=== PATIENT | male | born 1950 | race African-American/Black ===

== ENCOUNTER 2019-03-05 09:27 | Emergency (ER) | payer MEDICARE, OTHER ==
[~2019-03-05] VITALS: Ht 170.2 cm; Wt 90.7 kg
[~2019-03-05 09:27] MED LIST: ATEN100T PO; ATOR20TA PO; BECL8.7A6 IH; CETI10TA16 PO; CLON0.2T PO; CYCL10TA2 PO; FLUT9.9S NS; LEVO500T59 PO; METF10007 PO; NAPR-514 PO; OLME1TAB35 PO; OMEP20CA10 PO; PROAIR RESPICL90 MCG IH
[2019-03-05 09:34] VITALS: BP 160/87
[2019-03-05] MEDS ORDERED: KETOROLAC 60 MG/2 ML VIAL. IM ONE (09:45)
[2019-03-05] MEDS ORDERED: ORPHENADRINE CITRATE 60 MG/2 ML VIAL. IM ONE (09:45)
--- NOTE | 2019-03-05 10:37 | PHYS DOC ---
Past Medical History Past Medical History: Asthma, Diabetes-Type II, Hypertension Past Surgical History: Other Additional Past Surgical Histo: R eye surgery and hernia repair Alcohol Use: None Drug Use: None Adult General Chief Complaint Chief Complaint: SHOULDER INJURY HPI HPI Patient is a 69 year old male who presents with significant that last night in the grass and landed on the left shoulder. Patient states that he woke up this morning with pain. Rates his pain a 10 out of 10 and states it's throbbing pain cramping. Review of Systems Review of Systems Constitutional: Denies fever or chills [] Eyes: Denies change in visual acuity, redness, or eye pain [] HENT: Denies nasal congestion or sore throat [] Respiratory: Denies cough or shortness of breath [] Cardiovascular: No additional information not addressed in HPI [] GI: Denies abdominal pain, nausea, vomiting, bloody stools or diarrhea [] : Denies dysuria or hematuria [] Musculoskeletal: Denies back pain. Left shoulder joint pain [] Integument: Denies rash or skin lesions [] Neurologic: Denies headache, focal weakness or sensory changes [] Endocrine: Denies polyuria or polydipsia [] All other systems were reviewed and found to be within normal limits, except as documented in this note. Current Medications Current Medications Current Medications Medications (Trade) Dose Ordered Sig/Cinthia Start Time Stop Time Status Last Admin Dose Admin Ketorolac Tromethamine (Toradol Im) 60 mg 1X ONCE 03/05/19 09:45 03/05/19 09:46 DC 03/05/19 09:46 60 MG Orphenadrine Citrate (Norflex) 60 mg 1X ONCE 03/05/19 09:45 03/05/19 09:46 DC 03/05/19 09:46 60 MG Allergies Allergies Allergies Coded Allergies Type Severity Reaction Last Updated Verified lisinopril Allergy Intermediate COUGH 10/18/15 Yes Physical Exam Physical Exam Constitutional: Well developed, well nourished, no acute distress, non-toxic appearance. [] HENT: Normocephalic, atraumatic, bilateral external ears normal, oropharynx moist, no oral exudates, nose normal. [] Eyes: PERRLA, EOMI, conjunctiva normal, no discharge. [] Neck: Normal range of motion, no tenderness, supple, no stridor. [] Cardiovascular:Heart rate regular rhythm, no murmur [] Lungs & Thorax: Bilateral breath sounds clear to auscultation [] Abdomen: Bowel sounds normal, soft, no tenderness, no masses, no pulsatile masses. [] Skin: Warm, dry, no erythema, no rash. [] Back: No tenderness, no CVA tenderness. [] Extremities: No tenderness, no cyanosis, no clubbing, left shoulder ROM not intact, no edema. [] Neurologic: Alert and oriented X 3, normal motor function, normal sensory function, no focal deficits noted. [] Psychologic: Affect normal, judgement normal, mood normal. [] Current Patient Data Vital Signs Vital Signs Date Time Temp Pulse Resp B/P (MAP) Pulse Ox O2 Delivery O2 Flow Rate FiO2 03/05/19 09:34 98.5 107 20 160/87 (111 95 Room Air 98.5 EKG EKG [] Radiology/Procedures Radiology/Procedures [] Impressions: [facility] [address] [place], [place] [id number] IMAGING REPORT Signed PATIENT: KYLEIGH LUIS ACCOUNT: [id number] : 1950 LOCATION: ER AGE: 69 SEX: M EXAM STATUS: REG ER ORD. PHYSICIAN: THEA MEDEIROS APRN REASON: injury pain, pt fell last quiana, left shoulder pain and limited movement PROCEDURE: SHOULDER 2+V LEFT Three-view left shoulder study Clinical indications: Patient fell last evening. Left shoulder pain and limited range of motion. FINDINGS: No acute fracture or dislocation or lytic process is evident. No AC joint separation is seen. 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 IMPRESSION: No acute fracture. Electronically signed by: Cristiano Dover MD (03/05/2019 10:51 AM) [facility] DICTATED and SIGNED BY: CRISTIANO DOVER MD DATE: 03/05/19 1051 Course & Med Decision Making Course & Med Decision Making Patient is a 69 year old male who presents with significant that last night in the grass and landed on the left shoulder. Patient states that he woke up this morning with pain. Rates his pain a 10 out of 10 and states it's throbbing pain cramping. Alert and oriented. Ambulatory with steady gait. Examining the left shoulder there is no deformity, bruising or abrasion or tenderness with p alpation or seen. Patient has limited range of motion in the joint due to pain. He can raise the joint about half way to shoulder height in all direction. No laxity in the joint. Cap refill less than 3 seconds. Skin pink warm and dry. Radial pulses strong and intact. No swelling in the extremity. Patient states he is not taken any pain medication. Patient is given a shot of orphenadrine and Toradol in the ED. Xray findings show No acute fracture or dislocation or lytic process is evident. No AC joint separation is seen. 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 Patient is to follow up with primary care if not getting better. Patient to take medications as ordered. Dragon Disclaimer Dragon Disclaimer This electronic medical record was generated, in whole or in part, using a voice recognition dictation system. Departure Departure Impression: Primary Impression: Shoulder pain Disposition: 01 HOME, SELF-CARE Condition: STABLE Referrals: UNKNOWN PCP NAME (PCP) ABIOLA SHOEMAKER MD Patient Instructions: Shoulder Pain Additional Instructions: Follow up with primary care provider or Dr Shoemaker if not getting better. Try using ice or heat. Scripts Ibuprofen (IBUPROFEN) 600 Mg Tablet 600 MG PO PRN Q6HRS PRN for INFLAMMATION, #20 TAB Prov: THEA MEDEIROS APRN 03/05/19 Orphenadrine Citrate (ORPHENADRINE CITRATE) 100 Mg Tablet.er 1 TAB PO BID, #20 TAB Prov: THEA MEDEIROS APRN 03/05/19 Problem Qualifiers Primary Impression: Shoulder pain Chronicity: acute Laterality: left Qualified Codes: M25.512 - Pain in left shoulder THEA MEDEIROS [employer]SEMBLER Mar 05, 2019 10:37
--- NOTE | 2019-03-05 10:54 | RAD ---
Three-view left shoulder study Clinical indications: Patient fell last evening. Left shoulder pain and limited range of motion. FINDINGS: No acute fracture or dislocation or lytic process is evident. No AC joint separation is seen. 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 IMPRESSION: No acute fracture. Electronically signed by: Chon Dover MD (03/05/2019 10:51 AM) [facility]
[2019-03-05] MEDS ORDERED: ORPH100T PO (11:04)
[2019-03-05] MEDS ORDERED: IBUP-1007 PO (11:04)
== END 2019-03-05 11:13 | disposition home or self-care (01) ==
LOC: ER 09:27
DX: M25.512 Pain in left shoulder (principal); G89.11 Acute pain due to trauma; E11.9 Type 2 diabetes mellitus without complications; I10 Essential (primary) hypertension; J45.909 Unspecified asthma, uncomplicated; Z88.8 Allergy status to other drugs, medicaments and biological substances; W18.39XA Other fall on same level, initial encounter; Y93.89 Activity, other specified; Y92.89 Other specified places as the place of occurrence of the external cause; Y99.8 Other external cause status
CPT/HCPCS: 73030; 96372; 99284; J1885; J2360

== ENCOUNTER 2019-10-02 14:34 | Emergency (ER) | payer MEDICARE ==
[~2019-10-02] VITALS: Ht 170.2 cm; Wt 68.0 kg
[~2019-10-02 14:34] MED LIST changes: +IBUP-1007 PO; -OMEP20CA10 PO; +OMEP20CA16 PO; +ORPH100T PO
[2019-10-02 15:00] VITALS: BP 184/90
[2019-10-02] MEDS ORDERED: TETRACAINE 0.5% OPHTH SOLUTION 4ML BOTTLE. ONE (15:07)
[2019-10-02] MEDS ORDERED: FLUORESCEIN OPHTH TEST STRIP. ONE (15:07)
[2019-10-02] MEDS ORDERED: TETRACAINE 0.5% OPHTH SOLUTION 4ML BOTTLE. OD ONE (15:15)
[2019-10-02] MEDS ORDERED: FLUORESCEIN OPHTH TEST STRIP. OD ONE (15:15)
[2019-10-02] MEDS ORDERED: HYDR-2761 PO (15:39)
[2019-10-02] MEDS ORDERED: ERYT1OIN6 OD (15:39)
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
[2019-10-02] MEDS ORDERED: HYDROcodone/APAP 5/325MG 1 TAB TABLET PO ONE (15:45)
[2019-10-02] MEDS ORDERED: ERYTHROMYCIN 0.5% OPHTH OINTMENT 1GM TUBE. OD ONE (15:45)
== END 2019-10-02 15:53 | disposition home or self-care (01) ==
LOC: ER 14:34
DX: S00.211A Abrasion of right eyelid and periocular area, initial encounter (principal); J45.909 Unspecified asthma, uncomplicated; E11.9 Type 2 diabetes mellitus without complications; I10 Essential (primary) hypertension; Z87.891 Personal history of nicotine dependence; Z98.890 Other specified postprocedural states; Z88.8 Allergy status to other drugs, medicaments and biological substances; W22.8XXA Striking against or struck by other objects, initial encounter; Y93.89 Activity, other specified; Y92.89 Other specified places as the place of occurrence of the external cause; Y99.8 Other external cause status
CPT/HCPCS: 99283

== ENCOUNTER 2019-10-19 10:34 | Emergency (ER) | payer MEDICARE ==
[~2019-10-19] VITALS: Ht 170.2 cm; Wt 150.0 kg
[~2019-10-19 10:34] MED LIST changes: +ERYT1OIN6 OD; +HYDR-2761 PO
[2019-10-19] MEDS ORDERED: fentaNYL PF VIAL 100 MCG/2 ML VIAL IV ONE (11:30)
[2019-10-19] MEDS ORDERED: IPRATRPIUM/ALBUTEROL 0.5/2.5MG 3 ML NEBU. NEB ONE (11:30)
[2019-10-19] MEDS ORDERED: methylPREDNISolone SOD SUCC PF 125 MG/2 ML VIAL. IV ONE (11:30)
[2019-10-19] MEDS ORDERED: IV NORMAL SALINE 1000ML BAG 1,000 ML IV ONE (11:30)
--- NOTE | 2019-10-19 11:34 | PHYS DOC ---
Past Medical History Past Medical History: Asthma, Diabetes-Type I, Diabetes-Type II, Hypertension Past Surgical History: Other Additional Past Surgical Histo: R eye surgery and hernia repair Smoking Status: Former Smoker Alcohol Use: None Drug Use: None Adult General Chief Complaint Chief Complaint: FLU SYMPTOM HPI HPI Patient is a 69 year old male who presents with fever, cough, congestion, runny nose, feeling hot and cold, shortness of breath, and loss of appetite. The patient states that this is been ongoing for 2-3 weeks. The patient rates his pain as 5 out of 10 in severity and sharp. He states been taking NyQuil and Monica-Lannon at home however that is not been helping his symptoms. The patient states he has a history of hypertension, diabetes, and COPD. He states that he is out of his blood pressure medicines and is not been taking them for last month. The patient also states he is out of his insulin has not taken it since this past summer. Review of Systems Review of Systems Constitutional: Reports fever or chills [] Eyes: Denies change in visual acuity, redness, or eye pain [] HENT: Reports runny nose and nasal congestion. Respiratory: Reports cough and shortness of breath [] Cardiovascular: No additional information not addressed in HPI [] GI: Denies abdominal pain, nausea, vomiting, bloody stools or diarrhea [] : Denies dysuria or hematuria [] Musculoskeletal: Denies back pain or joint pain [] Integument: Denies rash or skin lesions [] Neurologic: Denies headache, focal weakness or sensory changes [] Endocrine: Denies polyuria or polydipsia [] Complete systems were reviewed and found to be within normal limits, except as documented in this note. Current Medications Current Medications Current Medications Medications (Trade) Dose Ordered Sig/Cinthia Start Time Stop Time Status Last Admin Dose Admin Albuterol/ Ipratropium (Duoneb) 3 ml 1X ONCE 10/19/19 11:30 10/19/19 11:31 DC 10/19/19 12:08 3 ML Fentanyl Citrate (Fentanyl 2ml Vial) 50 mcg 1X ONCE 10/19/19 11:30 10/19/19 11:31 DC Methylprednisolone Sodium Succinate (SOLU-Medrol 125MG VIAL) 125 mg 1X ONCE 10/19/19 11:30 10/19/19 11:31 DC 10/19/19 11:57 125 MG Sodium Chloride 1,000 ml @ 1,000 mls/hr 1X ONCE 10/19/19 11:30 10/19/19 12:29 DC 10/19/19 11:54 1,000 MLS/HR Allergies Allergies Allergies Coded Allergies Type Severity Reaction Last Updated Verified lisinopril Allergy Intermediate COUGH 10/18/15 Yes Physical Exam Physical Exam Constitutional: Well developed, well nourished, no acute distress, toxic appearance. [] HENT: Normocephalic, atraumatic, bilateral external ears normal, oropharynx moist, no oral exudates, nose normal. [] Eyes: PERRLA, EOMI, conjunctiva normal, no discharge. [] Neck: Normal range of motion, no tenderness, supple, no stridor. [] Cardiovascular:Heart rate regular rhythm, no murmur [] Lungs & Thorax: Bilateral breath sounds clear have scattered wheezing. Abdomen: Bowel sounds normal, soft, no tenderness, no masses, no pulsatile masses. [] Skin: Warm, dry, no erythema, no rash. [] Neurologic: Alert and oriented X 3, normal motor function, normal sensory function, no focal deficits noted. [] Psychologic: Affect normal, judgement normal, mood normal. [] Current Patient Data Vital Signs Vital Signs Date Time Temp Pulse Resp B/P (MAP) Pulse Ox O2 Delivery O2 Flow Rate FiO2 10/19/19 12:52 86 16 188/102 (130) 95 Room Air 10/19/19 12:15 2.0 10/19/19 11:03 99.2 99.2 Lab Values Laboratory Tests Test 10/19/19 11:28 10/19/19 11:30 10/19/19 11:33 10/19/19 11:44 Glucose (Fingerstick) 221 mg/dL (70-99) H Influenza Type A Antigen Negative (NEGATIVE) Influenza Type B Antigen Negative (NEGATIVE) Urine Collection Type Unknown Urine Color Yellow Urine Clarity Clear Urine pH 5.0 Urine Specific [place] 1.025 Urine Protein Negative mg/dL (NEG-TRACE) Urine Glucose (UA) >=1000 mg/dL (NEG) Urine Ketones (Stick) Negative mg/dL (NEG) Urine Blood Negative (NEG) Urine Nitrite Negative (NEG) Urine Bilirubin Negative (NEG) Urine Urobilinogen Dipstick 0.2 mg/dL (0.2 mg/dL) Urine Leukocyte Esterase Negative (NEG) Urine RBC 1-2 /HPF (0-2) Urine WBC 0 /HPF (0-4) Urine Squamous Epithelial Cells Occ /LPF Urine Bacteria 0 /HPF (0-FEW) Urine Mucus Slight /LPF Urine Opiates Screen Neg (NEG) Urine Methadone Screen Neg (NEG) Urine Barbiturates Neg (NEG) Urine Phencyclidine Screen Neg (NEG) Urine Amphetamine/Methamphetamine Neg (NEG) Urine Benzodiazepines Screen Neg (NEG) Urine Cocaine Screen Pos (NEG) Urine Cannabinoids Screen Neg (NEG) Urine Ethyl Alcohol Neg (NEG) White Blood Count 8.9 x10^3/uL (4.0-11.0) Red Blood Count 4.79 x10^6/uL (4.30-5.70) Hemoglobin 14.0 g/dL (13.0-17.5) Hematocrit 42.2 % (39.0-53.0) Mean Corpuscular Volume 88 fL (79-100) Mean Corpuscular Hemoglobin 29 pg (25-35) Mean Corpuscular Hemoglobin Concent 33 g/dL (31-37) Red Cell Distribution Width 12.9 % (11.5-14.5) Platelet Count 345 x10^3/uL (140-400) Neutrophils (%) (Auto) 68 % (31-73) Lymphocytes (%) (Auto) 19 % (24-48) L Monocytes (%) (Auto) 12 % (0-9) H Eosinophils (%) (Auto) 0 % (0-3) Basophils (%) (Auto) 1 % (0-3) Neutrophils # (Auto) 6.0 x10^3/uL (1.8-7.7) Lymphocytes # (Auto) 1.7 x10^3/uL (1.0-4.8) Monocytes # (Auto) 1.1 x10^3/uL (0.0-1.1) Eosinophils # (Auto) 0.0 x10^3/uL (0.0-0.7) Basophils # (Auto) 0.1 x10^3/uL (0.0-0.2) Prothrombin Time 13.4 SEC (11.7-14.0) Prothrombin Time INR 1.1 (0.8-1.1) Activated Partial Thromboplast Time 30 SEC (24-38) Sodium Level 140 mmol/L (136-145) Potassium Level 3.8 mmol/L (3.5-5.1) Chloride Level 104 mmol/L (98-107) Carbon Dioxide Level 24 mmol/L (21-32) Anion Gap 12 (6-14) Blood Urea Nitrogen 17 mg/dL (8-26) Creatinine 1.2 mg/dL (0.7-1.3) Estimated GFR (Cockcroft-Gault) 73.1 BUN/Creatinine Ratio 14 (6-20) Glucose Level 208 mg/dL (70-99) H Lactic Acid Level 1.0 mmol/L (0.4-2.0) Calcium Level 9.1 mg/dL (8.5-10.1) Magnesium Level 2.2 mg/dL (1.8-2.4) Total Bilirubin 0.4 mg/dL (0.2-1.0) Aspartate Amino Transferase (AST) 18 U/L (15-37) Alanine Aminotransferase (ALT) 19 U/L (16-63) Alkaline Phosphatase 92 U/L (46-116) Troponin I Quantitative < 0.017 ng/mL (0.000-0.055) ZF-Hnr-W-Type Natriuretic Peptide 28 pg/mL (0-124) Total Protein 7.7 g/dL (6.4-8.2) Albumin 3.2 g/dL (3.4-5.0) L Albumin/Globulin Ratio 0.7 (1.0-1.7) L Procalcitonin < 0.10 ng/mL (0.00-0.10) Ethyl Alcohol Level < 10 mg/dL (0-10) Laboratory Tests 10/19/19 11:44 Laboratory Tests 10/19/19 11:44 EKG EKG EKG interpreted by Dr. Lucio Hpokins with rate of 92. Radiology/Procedures Radiology/Procedures [][facility] [address] [place] [address] IMAGING REPORT Signed PATIENT: KYLEIGH LUIS ACCOUNT: [id number] : 1950 LOCATION: ER AGE: 69 SEX: M EXAM STATUS: REG ER ORD. PHYSICIAN: CATHLEEN GREY APRN REASON: fever, shortness of breath PROCEDURE: CHEST PA & LATERAL CHEST PA LATERAL History: Fever. Shortness of breath. Comparison: March 15, 2016 Findings: No consolidation or pleural effusion. Normal heart size. No pneumothorax. Impression: 1. No acute cardiopulmonary process. Electronically signed by: Cecilio Maravilla DO (10/19/2019 12:46 PM) [id number] DICTATED and SIGNED BY: CECILIO MARAVILLA DO DATE: 10/19/19 1246 Course & Med Decision Making Course & Med Decision Making Pertinent Labs and Imaging studies reviewed. (See chart for details) Patient has had fevers and symptoms have been ongoing for 2-3 weeks. This is longer than expected for a viral illness. The patient has a history of COPD and diabetes but has not been taking care of himself. Will get labs, UA, chest x- ray, and give supportive care. Labs and chest x-ray are unremarkable for acute changes. The patient is not sure of the doses of his medications. The patient tox screen is + for cocaine. Will recommend to patient that he needs to see a primary care provider. Will place on Zithromax as his symptoms been ongoing for 2-3 weeks. Dragon Disclaimer Dragon Disclaimer This electronic medical record was generated, in whole or in part, using a voice recognition dictation system. Departure Departure Impression: Primary Impression: Cocaine abuse Additional Impression: Acute viral syndrome Disposition: 01 HOME, SELF-CARE Condition: STABLE Referrals: NO PCP (PCP) Patient Instructions: Cocaine Abuse and Chemical Dependency Additional Instructions: Thank you for visiting [facility]. We appreciate you trusting us with your care. If any additional problems come up don't hesitate to return to visit us. Please follow up with your primary care provider so they can plan additional care if needed and know about the problem that you had. If symptoms worsen come back to the Emergency Department. Any concerning symptoms that start such as chest pain, shortness of air, weakness or numbness on one side of the body, running high fevers or any other concerning symptoms return to the ER. Please be aware that diabetes can cause your sugars to fluctuate while you are sick. This can cause additional issues. Please check your sugars often to ensure they are staying in a safe range and if you are on insulin please take as ins tructed by your primary care doctor. If you have any questions about this please let us know or contact your primary care provider for additional instruction about taking your insulin while you are sick. If you get concerned regarding your sugar while at home please do not hesitate to come back to the ER. Please drink plenty of fluids. If unable to keep fluids down please return to ER. Please get Tylenol and Ibuprofen over the counter. Give each medication every 6 hours as directed by the medication labels. In order to utilize the peak of the medications, stagger the medications to where you are getting one of the medications every 3 hours. For example if you give Ibuprofen at 3 PM, you then give Tylenol at 6 PM and Ibuprofen again at 9 PM, and then Tylenol at midnight. Please get Zyrtec over the counter and take per label instructions for runny nose. Please follow up with primary care doctor for further care and also please stop using cocaine. Scripts Albuterol Sulfate (PROAIR HFA INHALER) 8.5 Gm Hfa.aer.ad 2 PUFF IH PRN Q4-6HRS PRN for wheezing for 21 Days, #1 INHALER 0 Refills Prov: CATHLEEN GREY APRN 10/19/19 Azithromycin (ZITHROMAX PACKET) 1 Gm Packet 1 PACKET PO ONCE, #1 PACKET Prov: CATHLEEN GREY APRN 10/19/19 Problem Qualifiers CATHLEEN GREY APRN Oct 19, 2019 11:34
--- NOTE | 2019-10-19 11:37 | EKG ---
[facility] [address] [place] [address] Test Date: 2019-10-19 Test Time: 11:36:22 Pat Name: KYLEIGH LUIS Department: Room: Gender: M Forensic Anthropologist: JESUS : 1950 Requested By: CATHLEEN GREY Order Number: [id number] Reading MD: Measurements Intervals Fred Rate: 92 P: 54 DC: 146 QRS: 71 QRSD: 90 T: 28 QT: 332 QTc: 415 Interpretive Statements SINUS RHYTHM LEFT ATRIAL ABNORMALITY ABNORMAL ECG RI6.01 Compared to ECG 03/15/2016 21:50:47 Atrial abnormality now present Sinus tachycardia no longer present
[2019-10-19 12:05] LABS: INFLUENZA A PATIENT NEGATIVE (NEGATIVE); INFLUENZA B PATIENT NEGATIVE (NEGATIVE)
[2019-10-19 12:07] LABS: BASO # 0.1 x10^3/uL (0.0-0.2); BASO % 1 % (0-3); EOS % 0 % (0-3); HEMATOCRIT 42.2 % (39.0-53.0); LYMPH # 1.7 x10^3/uL (1.0-4.8); LYMPH % 19 % (24-48); MEAN CORPUSCULAR HEMOGLOBIN 29 pg (25-35); MEAN CORPUSCULAR HGB CONC 33 g/dL (31-37); MEAN CORPUSCULAR VOLUME 88 fL (79-100); MONO # 1.1 x10^3/uL (0.0-1.1); MONO % 12 % (0-9); NEUT % 68 % (31-73); PLATELET COUNT 345 x10^3/uL (140-400); RED BLOOD COUNT 4.79 x10^6/uL (4.30-5.70); RED CELL DISTRIBUTION WIDTH 12.9 % (11.5-14.5); WHITE BLOOD COUNT 8.9 x10^3/uL (4.0-11.0)
[2019-10-19 12:15] LABS: BARBITURATES NEG (NEG); BENZODIAZEPINES NEG (NEG); CANNABINOIDS NEG (NEG); COCAINE POS (NEG); METHADONE NEG (NEG); OPIATES NEG (NEG); PHENCYCLIDINE NEG (NEG)
[2019-10-19 12:16] LABS: BILIRUBIN,URINE NEGATIVE (NEG); CLARITY,URINE CLEAR; COLOR,URINE YELLOW; NITRITE,URINE NEGATIVE (NEG); PROTEIN,URINE NEGATIVE (NEG-TRACE); UROBILINOGEN,URINE 0.2 mg/dL (0.2 mg/dL)
[2019-10-19 12:17] LABS: PROTHROMBIN TIME PATIENT 13.4 SEC (11.7-14.0)
[2019-10-19 12:21] LABS: AMPHETAMINE/METHAMPHETAMINE NEG (NEG)
[2019-10-19 12:22] LABS: SQUAMOUS EPITHELIAL CELL,UR OCC /LPF
[2019-10-19 12:23] LABS: BACTERIA,URINE 0 /HPF (0-FEW); WBC,URINE 0 /HPF (0-4)
[2019-10-19 12:24] LABS: CALCIUM 9.1 mg/dL (8.5-10.1); CREATININE 1.2 mg/dL (0.7-1.3); GFR 73.1; POTASSIUM 3.8 mmol/L (3.5-5.1)
[2019-10-19 12:30] LABS: ALBUMIN 3.2 g/dL (3.4-5.0); ALBUMIN/GLOBULIN RATIO 0.7 (1.0-1.7); MAGNESIUM 2.2 mg/dL (1.8-2.4); TOTAL BILIRUBIN 0.4 mg/dL (0.2-1.0); TOTAL PROTEIN 7.7 g/dL (6.4-8.2)
--- NOTE | 2019-10-19 12:49 | RAD ---
CHEST PA LATERAL History: Fever. Shortness of breath. Comparison: March 15, 2016 Findings: No consolidation or pleural effusion. Normal heart size. No pneumothorax. Impression: 1. No acute cardiopulmonary process. Electronically signed by: Cecilio Maravilla DO (10/19/2019 12:46 PM) [id number]
[2019-10-19 13:22] VITALS: BP 196/105
[2019-10-19] MEDS ORDERED: AZIT1PAC PO (13:57)
[2019-10-19] MEDS ORDERED: ALBU2.5V8 IH (13:59)
== END 2019-10-19 14:17 | disposition home or self-care (01) ==
LOC: ER 10:34
DX: B34.9 Viral infection, unspecified (principal); R50.9 Fever, unspecified; R05 Cough; R63.0 Anorexia; R06.02 Shortness of breath; F12.10 Cannabis abuse, uncomplicated; J45.909 Unspecified asthma, uncomplicated; E11.9 Type 2 diabetes mellitus without complications; I10 Essential (primary) hypertension; Z87.891 Personal history of nicotine dependence; Z88.2 Allergy status to sulfonamides; Z98.890 Other specified postprocedural states
CPT/HCPCS: 36415; 71046; 80053; 80307; 81001; 82962; 83605; 83735; 83880; 84145; 84484; 85025; 85610; 85730; 87804; 93005; 94640; 96361; 96374; 99285; G0480; J2930; J7030; J7620

== ENCOUNTER 2020-01-18 01:33 | Emergency (ER) | payer MEDICARE ==
[~2020-01-18] VITALS: Ht 170.2 cm; Wt 68.0 kg
[~2020-01-18 01:33] MED LIST changes: +ALBU2.5V8 IH; +AZIT1PAC PO
[2020-01-18] MEDS ORDERED: BUTORPHANOL 2 MG/ML VIAL. IM ONE (02:30)
[2020-01-18] MEDS ORDERED: DEXAMETHASONE SOD PHOS 20 MG/5 ML VIAL. IM ONE (02:30)
[2020-01-18] MEDS ORDERED: ORPHENADRINE CITRATE 60 MG/2 ML VIAL. IM ONE (02:30)
[2020-01-18] MEDS ORDERED: HYDR-3164 PO (02:33)
[2020-01-18] MEDS ORDERED: ORPH100T PO (02:33)
[2020-01-18] MEDS ORDERED: DICL50TA4 PO (02:33)
--- NOTE | 2020-01-18 02:33 | PHYS DOC ---
Past Medical History Past Medical History: Asthma, Diabetes-Type II, Hypertension Past Surgical History: Other Additional Past Surgical Histo: R eye surgery and hernia repair Smoking Status: Former Smoker Alcohol Use: None Drug Use: None General Adult EDM: Chief Complaint: LOWER BACK PAIN OR INJURY HPI: HPI: Patient is a 69 year old male who presents with complaint of severe right-sided lower back pain. Patient states that pain started a couple of months back but pain is gotten a lot worse over the last 24 hours. Currently rates pain at a 10 out of 10. He states pain is worsened with movement. He denies any radiation of the pain down the legs. He denies any loss of bowel or bladder control. He also denies any saddle anesthesia. Patient states that he took some Advil last night and pain is just not getting any better. He denies any recent injuries. [] Review of Systems: Review of Systems: Constitutional: Denies fever or chills. [] Respiratory: Denies cough or shortness of breath. [] Cardiovascular: Denies chest pain or edema. [] Musculoskeletal: Complains of right-sided lower back pain. [] Integument: Denies rash. [] Neurologic: Denies headache, focal weakness or sensory changes. [] Heart Score: Risk Factors: Risk Factors: DM, Current or recent (<one month) smoker, HTN, HLP, family history of CAD, obesity. Risk Scores: Score 0 - 3: 2.5% MACE over next 6 weeks - Discharge Home Score 4 - 6: 20.3% MACE over next 6 weeks - Admit for Clinical Observation Score 7 - 10: 72.7% MACE over next 6 weeks - Early Invasive Strategies Current Medications: Current Medications Medications (Trade) Dose Ordered Sig/[facility] Start Time Stop Time Status Last Admin Dose Admin Butorphanol Tartrate (Stadol) 2 mg 1X ONCE 01/18/20 02:30 01/18/20 02:31 01/18/20 02:11 2 MG Dexamethasone Sodium Phosphate (Decadron) 10 mg 1X ONCE 01/18/20 02:30 01/18/20 02:31 01/18/20 02:10 10 MG Orphenadrine Citrate (Norflex) 60 mg 1X ONCE 01/18/20 02:30 01/18/20 02:31 01/18/20 02:10 60 MG Allergies: Allergies: Allergies Coded Allergies Type Severity Reaction Last Updated Verified lisinopril Allergy Intermediate COUGH 10/18/15 Yes Physical Exam: PE: Constitutional: Well developed, well nourished, no acute distress, non-toxic appearance. [] Neck: Normal range of motion, no tenderness, supple, no stridor. [] Cardiovascular: Regular rate and rhythm [] Lungs & Thorax: Bilateral breath sounds clear to auscultation [] Abdomen: Bowel sounds normal, soft, no tenderness. [] Skin: Warm, dry, no erythema, no rash. [] Back: There is tenderness to palpation in the right lower lumbar paraspinal musculature that reproduces his pain. [] Neurologic: Alert and oriented X 3, no focal deficits noted. [] Current Patient Data: Vital Signs: Vital Signs Date Time Temp Pulse Resp B/P (MAP) Pulse Ox O2 Delivery O2 Flow Rate FiO2 01/18/20 02:11 16 98 Room Air 01/18/20 02:00 98.9 92 148/79 (102) 98.9 EKG: EKG: [] Radiology/Procedures: Radiology/Procedures: [] Course & Med Decision Making: Course & Med Decision Making Pertinent Labs and Imaging studies reviewed. (See chart for details) [] Dragon Disclaimer: [employer] Disclaimer: This electronic medical record was generated, in whole or in part, using a voice recognition dictation system. Departure Departure Impression: Primary Impression: Low back pain Qualified Codes: M54.5 - Low back pain Disposition: HOME, SELF-CARE Condition: STABLE Referrals: NO PCP (PCP) Patient Instructions: Back Pain, Adult Scripts Orphenadrine Citrate (ORPHENADRINE CITRATE) 100 Mg Tablet.er 1 TAB PO BID PRN for MUSCLE SPASMS, #14 TAB Prov: GIDEON MARRERO Jr. DO 01/18/20 Hydrocodone/Apap 5-325 (NORCO 5-325 TABLET) 1 Each Tablet 1-2 EACH PO PRN Q6HRS PRN for PAIN, #15 as needed for pain Prov: GIDEON MARRERO Jr. DO 01/18/20 Diclofenac Sodium (DICLOFENAC SODIUM) 50 Mg Tablet.dr 1 TAB PO BID PRN for PAIN, #20 TAB Prov: GIDEON MARRERO Jr. DO 01/18/20 GIDEON MARRERO Jr. DO January 18, 2020 02:33
[2020-01-18 02:39] VITALS: BP 163/81
== END 2020-01-18 02:40 | disposition home or self-care (01) ==
LOC: ER 01:33
DX: M54.5 Low back pain (principal); E11.9 Type 2 diabetes mellitus without complications; I10 Essential (primary) hypertension; J45.909 Unspecified asthma, uncomplicated; Z87.891 Personal history of nicotine dependence; Z88.8 Allergy status to other drugs, medicaments and biological substances
CPT/HCPCS: 96372; 99284; J0595; J1100; J2360

== ENCOUNTER 2021-08-22 09:18 | Emergency (ER) | payer OTHER, MEDICARE ==
[~2021-08-22] VITALS: Ht 170.2 cm; Wt 77.3 kg
[~2021-08-22 09:18] MED LIST changes: +AMLO-186 PO; +BISA5TAB4 PO; +CYCL10TA19 PO; -CYCL10TA2 PO; +DICL50TA4 PO; +DOCU-148 PO; +GABA300C18 PO; +HYDR-3164 PO; +INSU100V35 SQ; +INSU100V8 SQ; +LOSA1TAB22 PO
[2021-08-22] MEDS ORDERED: ACETAMINOPHEN 500 MG TABLET PO ONE (09:45)
[2021-08-22] MEDS ORDERED: ORPHENADRINE CITRATE 60 MG/2 ML VIAL. IM ONE (09:45)
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
[2021-08-22 11:19] VITALS: BP 178/101
== END 2021-08-22 11:35 | disposition home or self-care (01) ==
LOC: ER 09:18
DX: G44.319 Acute post-traumatic headache, not intractable (principal); I10 Essential (primary) hypertension; E11.9 Type 2 diabetes mellitus without complications; J45.909 Unspecified asthma, uncomplicated; F17.200 Nicotine dependence, unspecified, uncomplicated; G89.11 Acute pain due to trauma; V49.59XA Passenger injured in collision with other motor vehicles in traffic accident, initial encounter; Y93.89 Activity, other specified; Y92.488 Other paved roadways as the place of occurrence of the external cause; Y99.8 Other external cause status
CPT/HCPCS: 70450; 72125; 96372; 99284; J2360

== ENCOUNTER 2021-09-30 02:47 | Emergency (ER) | payer OTHER, MEDICARE ==
[~2021-09-30] VITALS: Ht 170.2 cm; Wt 68.2 kg
[2021-09-30] MEDS ORDERED: IV NORMAL SALINE 1000ML BAG 1,000 ML IV ONE (03:15)
[2021-09-30] MEDS ORDERED: diphenhydrAMINE 50 MG/ML VIAL IVP ONE (03:15)
[2021-09-30] MEDS ORDERED: PROCHLORPERAZINE 10 MG/2 ML VIAL. IV ONE (03:15)
[2021-09-30] MEDS ORDERED: ACETAMINOPHEN 500 MG TABLET PO ONE (03:15)
[2021-09-30 03:22] LABS: BASO # 0.1 x10^3/uL (0.0-0.2); BASO % 1 % (0-3); EOS # 0.1 x10^3/uL (0.0-0.7); EOS % 1 % (0-3); HEMOGLOBIN 14.8 g/dL (13.0-17.5); LYMPH # 2.3 x10^3/uL (1.0-4.8); LYMPH % 27 % (24-48); MEAN CORPUSCULAR HEMOGLOBIN 28 pg (25-35); MEAN CORPUSCULAR HGB CONC 34 g/dL (31-37); MEAN CORPUSCULAR VOLUME 84 fL (79-100); MONO # 0.7 x10^3/uL (0.0-1.1); MONO % 8 % (0-9); NEUT # 5.3 x10^3/uL (1.8-7.7); NEUT % 63 % (31-73); PLATELET COUNT 273 x10^3/uL (140-400); RED BLOOD COUNT 5.26 x10^6/uL (4.30-5.70); RED CELL DISTRIBUTION WIDTH 13.6 % (11.5-14.5); WHITE BLOOD COUNT 8.4 x10^3/uL (4.0-11.0)
[2021-09-30 03:32] LABS: CALCIUM 8.8 mg/dL (8.5-10.1); CREATININE 1.2 mg/dL (0.7-1.3); GFR 72.6; POTASSIUM 3.5 mmol/L (3.5-5.1)
--- NOTE | 2021-09-30 03:33 | RAD ---
CT Head W/O Contrast: History: Reason: worsening headaches / Spl. Instructions: / History: Comparison: none Axial images were obtained without contrast. The prince and white matter appears normal and symmetrical for the patients age. There is no mass effe ct, extraaxial fluid collections or hydrocephalus. There is no gross bleed. There is no focal loss of prince-white matter distinction to suggest acute ischemia, i.e. stroke. Impression: No acute findings. RS Compliance Statement: One or more of the following individualized dose reduction techniques were utilized for this examinat ion: 1. Automated exposure control 2. Adjustment of the mA and/or kV according to patient size 3. Use of iterative reconstruction technique Electronically signed by: Kike Ybarra III, MD (09/30/2021 3:31 AM) [facility]
[2021-09-30 03:37] LABS: ALBUMIN 3.7 g/dL (3.4-5.0); ALBUMIN/GLOBULIN RATIO 0.9 (1.0-1.7); MAGNESIUM 2.1 mg/dL (1.8-2.4); TOTAL BILIRUBIN 0.4 mg/dL (0.2-1.0); TOTAL PROTEIN 7.6 g/dL (6.4-8.2)
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
[2021-09-30] MEDS ORDERED: hydrALAZINE 20 MG/ML VIAL. IVP ONE ×3 (04:15→05:30)
[2021-09-30 05:20] VITALS: BP 185/92
== END 2021-09-30 05:52 | disposition home or self-care (01) ==
LOC: ER 03:43
DX: G44.309 Post-traumatic headache, unspecified, not intractable (principal); F07.81 Postconcussional syndrome; F14.10 Cocaine abuse, uncomplicated; I10 Essential (primary) hypertension; E11.9 Type 2 diabetes mellitus without complications; J45.909 Unspecified asthma, uncomplicated; F17.200 Nicotine dependence, unspecified, uncomplicated; Z88.6 Allergy status to analgesic agent
CPT/HCPCS: 36415; 70450; 80053; 83735; 83880; 85025; 96361; 96374; 96375; 96376; 99284; G0480; J0360; J0780; J1200; J7030